=== PATIENT | female | born 1975 | race Caucasian/White ===

== ENCOUNTER 2023-01-28 22:49 | Inpatient (IN) ==
[2023-01-28] MEDS ORDERED: SODIUM CHLORIDE 0.9% 1000ML 1,000 ML IV SCH (23:15)
[2023-01-29 00:58] LABS: Appearance Urine Clear (Clear); Bacteria Urine Automated Negative (Negative); Bilirubin Urine Negative (Negative); Blood Urine 2+ (Negative); Cast Urine Automated 0 /lpf (0-5); Color Urine Yellow; Glucose Urine UA Negative (Negative); Ketones Urine Negative (Negative); Leukocyte Esterase Urine Negative (Negative); Nitrite Urine Negative (Negative); Protein Urine Negative (Negative); Specific Gravity Urine 1.006 (1.000-1.030); Urobilinogen Urine Negative (Negative); pH Urine 6.5 (4.5-7.5)
[2023-01-29 00:59] LABS: Basophils # (auto) 0.08 K/uL (0-0.2); Basophils % (auto) 0.6 %; Eosinophils % (auto) 1.5 %; Immature Granulocytes # (auto) 0.04 K/uL (0.01-0.20); Immature Granulocytes % (auto) 0.3 %; Lymphocytes # (auto) 2.18 K/uL (1.2-3.4); Mean Corpuscular Hemoglobin 27.4 pg (25.0-34.0); Mean Corpuscular Hgb Conc 33.3 g/dL (32.0-36.0); Mean Corpuscular Volume 82.1 fL (80.0-100.0); Mean Platelet Volume 9.8 fL (9.4-12.4); Monocytes # (auto) 0.53 K/uL (0.11-0.59); Monocytes % (auto) 3.9 %; Neutrophils # (auto) 10.56 K/uL (1.40-6.50); Neutrophils % (auto) 77.7 %; Platelet Count 431 K/uL (130-400); RDW Coefficient of Variation 13.8 % (11.5-14.5); RDW Standard Deviation 40.8 fL (36.4-46.3); Red Blood Count 4.75 M/uL (4.20-5.40); White Blood Count 13.59 K/ul (4.8-10.8)
[2023-01-29 01:11] LABS: Albumin Globulin Ratio 1.4 (0.9-2); Albumin Level 4.3 gm/dl (3.4-5.0); BUN Creatinine Ratio 22.9 (10-20); Bilirubin,Total 0.4 mg/dl (0.2-1.0); Calcium 9.4 mg/dl (8.5-10.1); Creatinine Clr Calc Pharmacy 105.3 ml/min; Est GFR (African American) 119.6 ml/min; Est GFR (Non-African American) 103.2 ml/min; Globulin 3.1 gm/dl (2.5-4.0); Potassium 3.8 mmol/L (3.5-5.1); Total Protein 7.4 gm/dl (6.0-8.3)
[2023-01-29 01:13] LABS: Pregnancy Test, Serum Negative (Negative)
[2023-01-29 01:22] LABS: Partial Thromboplastin Ratio 0.9; Partial Thromboplastin Time 25.1 Seconds (21.0-31.0); Prothrombin Time 10.3 Seconds (9.0-12.0)
[2023-01-29] MEDS ORDERED: OPTIRAY 320 500ml IV ONE (01:56)
[2023-01-29] MEDS ORDERED: ONDANSETRON INJ 2 MG/ML 2 ML VIAL IV STA (02:04)
[2023-01-29] MEDS ORDERED: MECLIZINE HCL 25 MG TAB PO STA (02:04)
[2023-01-29] MEDS ORDERED: SODIUM CHLORIDE 0.9% 1000ML 2,000 ML IV ONE (02:04)
--- NOTE | 2023-01-29 02:04 | CT Scan Report ---
Exam(s): CT HEAD Without Contrast EXAM: CT Head Without Intravenous Contrast CLINICAL HISTORY: Reason for exam: dizziness. TECHNIQUE: Axial computed tomography images of the head/brain without intravenous contrast. Automated exposure control was utilized for the study. A dose lowering technique was utilized adhering to the principles of ALARA. COMPARISON: Head CT 09/10/06. FINDINGS: Brain: Moderate left temporal lobe vasogenic edema. MRI brain with and without contrast is recommended for further evaluation of underlying lesion. No acute infarct. No acute hemorrhage. No abnormal density in the posterior fossa. No herniation. Ventricles: No hydrocephalus or midline shift. Bones/joints: No skull fracture. Soft tissues: No scalp hematoma. Sinuses: Clear. Mastoid air cells: No mastoid effusion. IMPRESSION: 1. Moderate left temporal lobe vasogenic edema. 2. No hemorrhage, hydrocephalus or herniation. 3. MRI brain with and without contrast is recommended for further evaluation. Electronically signed by: Ghazala Serrano M.D. 01/29/23 02:04 AM
--- NOTE | 2023-01-29 02:09 | Emergency Department Note ---
History of Present Illness General Chief complaint: Vertigo Stated complaint: VERTIGO,DIZZINESS, Time Seen by Provider: 01/29/23 01:57 History of Present Illness 47-year-old female presents emergency department with an onset of vertigo that started this morning when she woke up. Patient states when she lays flat she has sudden onset of room spinning. Patient has a history of reportedly congenital nystagmus at which is do not cause vertigo. Patient states that the lights look like ornaments that started around 5 this evening. Patient denies any hearing loss or tinnitus. Patient denies blurred vision slurred speech she does state some nausea. Patient denies any recent infections she states that she has chronic diarrhea. There are no other complaints. Patient states the symptoms are worsening when she lays flat. There are no other mitigating or alleviating factors Home Medications Medication Instructions Recorded Confirmed Type levothyroxine 137 mcg tablet 137 mcg PO 4XWK 09/28/20 01/29/23 History (Levo-T) levothyroxine 150 mcg tablet 150 mcg PO 3XWK 09/28/20 01/29/23 History (Levo-T) naratriptan 2.5 mg tablet 2.5 mg PO DIRECTED PRN Migraine 01/29/23 01/29/23 History Headache norgestrel 0.3 mg-ethinyl 1 tab PO DAILY 01/29/23 01/29/23 History estradiol 30 mcg tablet (Low-Ogestrel (28)) Allergies Allergy/AdvReac Type Severity Reaction Status Date / Time sumatriptan [From Imitrex] AdvReac Severe BECAME Verified 01/29/23 01:01 HOMICIDAL Past Med/Surg History Surgical History H/O thyroidectomy Family History Other No significant family history Social History Smoking Status: Never smoker Feels Safe at Home: Yes Immunizations: Past medical history includes migraines, 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; Review of Systems A total of 10 systems reviewed and were otherwise negative Neurologic: no paralysis, no tingling, no syncope and no headache(s) Physical Exam Vital Signs Vital Signs - 24 hr 01/28/23 22:50 01/29/23 00:34 01/29/23 00:30 Temperature 36.4 C L Temperature Source Temporal Artery Scan Pulse Rate 112 H 108 H Pulse Rate [Apical] 107 H Pulse Rate from SpO2 Sensor Pulse Rhythm [Apical] Regular Pulse Strength [Apical] Normal Respiratory Rate 20 22 Respiratory Effort / Characteristics Non-Labored Spontaneous Non-Labored Respiratory Depth Normal Normal Respiratory Pattern Regular Blood Pressure 168/117 H Blood Pressure [Right Arm] 156/109 H Blood Pressure Mean 134 Blood Pressure Mean [Right Arm] 124 Pulse Oximetry 97 96 Oxygen Delivery Method Room Air Room Air Sepsis Recent Fever Within 48 Hours No Sepsis New/Unexplained Change in Mental Status No Sepsis Action Taken by Nursing No Action Required 01/29/23 01:30 01/29/23 02:00 01/29/23 02:30 Temperature Temperature Source Pulse Rate 112 H 116 H 158 H Pulse Rate [Apical] Pulse Rate from SpO2 Sensor 113 H 117 H 154 H Pulse Rhythm [Apical] Pulse Strength [Apical] Respiratory Rate 20 22 23 Respiratory Effort / Characteristics Respiratory Depth Respiratory Pattern Blood Pressure 152/97 H 174/105 H 204/146 H Blood Pressure [Right Arm] Blood Pressure Mean 115 128 165 Blood Pressure Mean [Right Arm] Pulse Oximetry 95 95 98 Oxygen Delivery Method Room Air Room Air Room Air Sepsis Recent Fever Within 48 Hours Sepsis New/Unexplained Change in Mental Status Sepsis Action Taken by Nursing 01/29/23 02:45 01/29/23 03:00 01/29/23 03:05 Temperature Temperature Source Pulse Rate 121 H 127 H 126 H Pulse Rate [Apical] Pulse Rate from SpO2 Sensor 128 H 129 H 127 H Pulse Rhythm [Apical] Pulse Strength [Apical] Respiratory Rate 18 23 24 Respiratory Effort / Characteristics Respiratory Depth Respiratory Pattern Blood Pressure 172/112 H 174/106 H 163/109 H Blood Pressure [Right Arm] Blood Pressure Mean 132 128 127 Blood Pressure Mean [Right Arm] Pulse Oximetry 97 98 97 Oxygen Delivery Method Room Air Room Air Room Air Sepsis Recent Fever Within 48 Hours Sepsis New/Unexplained Change in Mental Status Sepsis Action Taken by Nursing GENERAL: Patient is awake alert in no acute distress patient is resting comfortably and showing no signs of anxiety EYES: The conjunctivae are clear. The pupils are round and reactive. EARS, NOSE, MOUTH AND THROAT: The nose is without any evidence of any deformity. Mucous membranes are moist. Tongue is midline. TMs are clear bilaterally NECK: The neck is nontender and supple. RESPIRATORY: Normal respiratory effort is noted there is no evidence of wheezing rhonchi or rales CARDIOVASCULAR: Tachycardic rate and rhythm noted there no murmurs rubs or gallops normal S1 normal S2. GASTROINTESTINAL: The abdomen is soft. Abdomen is nontender. PELVIS: The Pelvis is stable. No tenderness to palpation is noted. BACK: No midline tenderness or or step-off noted range of motion in flexion extension as well as rotation no signs of muscle spasm noted MUSCULOSKELETAL/EXTREMITIES: There is no evidence of gross deformity full range of motion is noted in the hips and shoulders. SKIN: There is no obvious evidence of any rash. There are no petechiae, pallor or cyanosis noted. NEUROLOGIC: Patient is awake alert and oriented x3 strength is symmetric; patient has horizontal nystagmus; NIH is 0 Course Reevaluation(s) Reevaluation #1: Patient was started on IV fluids, Zofran, meclizine. 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 I have discussed the CT results with the patient and family at bedside regarding the need due to this intracranial mass Time: 02:28 Consultations Consultation #1: Spoke with the radiologist regarding the patient's CAT scan reads Time: :28 Consultation #2: Spoke with Dr. Olivier at [facility], currently there are no beds available for this patient, he does recommend MRI of the brain with and without IV contrast, hold on Keppra and hold on Decadron Time: 02:44 Consultation #3: Case was discussed with the [facility] hospitalist for admission due to lack of beds at [facility] for transfer Time: 03:00 Administered Medications Sodium Chloride (Nss 1000ml) 2,000 mls @ 60 mls/hr IV .Q24H ONE Stop: 01/30/23 02:03 Last Admin: 01/29/23 02:10 Dose: 100 mls/hr Documented By: ROCAEL Discontinued Medications Sodium Chloride (Nss 1000ml) 1,000 mls @ 999 mls/hr IV .Q1H1M KIARRA Stop: 01/29/23 00:15 Last Infusion: 01/29/23 01:36 Dose: 0 mls/hr Documented By: Admin: 01/29/23 00:30 Dose: 999 mls/hr Documented By: PETRA Ioversol (Optiray 320 500ml) 125 ml IV ONCE ONE Stop: 01/29/23 01:57 Last Admin: 01/29/23 01:57 Dose: 106 ml Documented By: LEX Labetalol HCl (Labetalol Hcl Iv 5 Mg/Ml 20ml) 10 mg IV NOW STA Stop: 01/29/23 02:49 Last Admin: 01/29/23 03:00 Dose: 10 mg Documented By: ROCAEL Co-signed By: PETRA Meclizine HCl (Meclizine Hcl 25 Mg Tab) 25 mg PO NOW STA Stop: 01/29/23 02:05 Last Admin: 01/29/23 02:13 Dose: 25 mg Documented By: ROCAEL Ondansetron HCl (Ondansetron Inj 2 Mg/Ml 2 Ml Vial) 4 mg IV NOW STA Stop: 01/29/23 02:05 Last Admin: 01/29/23 02:13 Dose: 4 mg Documented By: ROCAEL Critical Care Time Critical Care Time: Yes Total Critical Care Time: 45 I have personally spent greater than 45 minutes of critical care time in the direct management of this patient. This includes bedside care, interpretation of diagnostic studies, and testing, discussion with consultants, patient, and family members, and other required patient management activities. These minutes are in excess of all separately billable procedures. Medical Decision Making Medical Records Attestation: I reviewed the patient's medical records. Home Medications Current Medication List: was personally reviewed by Laboratory Data Attestation: I reviewed the patient's lab results. Labs reviewed by me show a leukocytosis 01/29/23 00:15 01/29/23 00:15 Lab Results 01/29/23 01/29/23 01/29/23 Range/Units 00:15 00:15 00:15 WBC 13.59 H (4.8-10.8) K/ul RBC 4.75 (4.20-5.40) M/uL Hgb 13.0 (12.0-16.0) g/dl Hct 39.0 (37.0-47.0) % MCV 82.1 (80.0-100.0) fL MCH 27.4 (25.0-34.0) pg MCHC 33.3 (32.0-36.0) g/dL RDW Std Deviation 40.8 (36.4-46.3) fL RDW Coeff of Rei 13.8 (11.5-14.5) % Plt Count 431 H (130-400) K/uL MPV 9.8 (9.4-12.4) fL Immature Gran % (Auto) 0.3 % Neut % (Auto) 77.7 % Lymph % (Auto) 16.0 % Whiteside % (Auto) 3.9 % Eos % (Auto) 1.5 % Baso % (Auto) 0.6 % Neut # (Auto) 10.56 H (1.40-6.50) K/uL Lymph # (Auto) 2.18 (1.2-3.4) K/uL Whiteside # (Auto) 0.53 (0.11-0.59) K/uL Eos # (Auto) 0.20 (0-0.50) K/uL Baso # (Auto) 0.08 (0-0.2) K/uL Immature Gran # (Auto) 0.04 (0.01-0.20) K/uL PT 10.3 (9.0-12.0) Seconds INR 1.0 (0.9-1.1) APTT 25.1 (21.0-31.0) Seconds PTT Ratio 0.9 Sodium 140 (136-145) mmol/L Potassium 3.8 (3.5-5.1) mmol/L Chloride 106 (98-107) mmol/L Carbon Dioxide 24 (21-32) mmol/L Anion Gap 10 (3-11) BUN 16 (6-23) mg/dl Creatinine 0.70 (0.6-1.2) mg/dl Est Cr Clr Drug Dosing 105.3 ml/min Est GFR ( Amer) 119.6 ml/min Est GFR (Non-Af Amer) 103.2 ml/min BUN/Creatinine Ratio 22.9 H (10-20) Glucose 130 H (70-99(Fasting)) mg/dl Calcium 9.4 (8.5-10.1) mg/dl Magnesium 2.0 (1.7-2.4) mg/dl Total Bilirubin 0.4 (0.2-1.0) mg/dl AST 17 (13-39) U/L ALT 26 (7-52) U/L Alkaline Phosphatase 69 (34-104) U/L Troponin I High Sens 6.0 (0-14) pg/ml Total Protein 7.4 (6.0-8.3) gm/dl Albumin 4.3 (3.4-5.0) gm/dl Globulin 3.1 (2.5-4.0) gm/dl Albumin/Globulin Ratio 1.4 (0.9-2) Procalcitonin (0-0.5) ng/ml TSH (0.300-4.500) uIu/ml HCG, Qual (Negative) Urine Color Urine Appearance (Clear) Urine pH (4.5-7.5) Ur Specific [place] (1.000-1.030) Urine Protein (Negative) Urine Glucose (UA) (Negative) Urine Ketones (Negative) Urine Blood (Negative) Urine Nitrite (Negative) Urine Bilirubin (Negative) Urine Urobilinogen (Negative) Ur Leukocyte Esterase (Negative) Urine WBC (Auto) (0-5) /hpf Urine RBC (Auto) (0-4) /hpf U Hyaline Cast (Auto) (0-5) /lpf U Epithel Cells (Auto) (0-5) /lpf Urine Bacteria (Auto) (Negative) SARS-CoV-2, RNA, NAAT (NEGATIVE) 01/29/23 01/29/23 01/29/23 Range/Units 00:15 00:15 00:15 WBC (4.8-10.8) K/ul RBC (4.20-5.40) M/uL Hgb (12.0-16.0) g/dl Hct (37.0-47.0) % MCV (80.0-100.0) fL MCH (25.0-34.0) pg MCHC (32.0-36.0) g/dL RDW Std Deviation (36.4-46.3) fL RDW Coeff of Rei (11.5-14.5) % Plt Count (130-400) K/uL MPV (9.4-12.4) fL Immature Gran % (Auto) % Neut % (Auto) % Lymph % (Auto) % Whiteside % (Auto) % Eos % (Auto) % Baso % (Auto) % Neut # (Auto) (1.40-6.50) K/uL Lymph # (Auto) (1.2-3.4) K/uL [place]ites[place] # (Auto) (0.11-0.59) K/uL Eos # (Auto) (0-0.50) K/uL Baso # (Auto) (0-0.2) K/uL Immature Gran # (Auto) (0.01-0.20) K/uL PT (9.0-12.0) Seconds INR (0.9-1.1) APTT (21.0-31.0) Seconds PTT Ratio Sodium (136-145) mmol/L Potassium (3.5-5.1) mmol/L Chloride (98-107) mmol/L Carbon Dioxide (21-32) mmol/L Anion Gap (3-11) BUN (6-23) mg/dl Creatinine (0.6-1.2) mg/dl Est Cr Clr Drug Dosing ml/min Est GFR ( Amer) ml/min Est GFR (Non-Af Amer) ml/min BUN/Creatinine Ratio (10-20) Glucose (70-99(Fasting)) mg/dl Calcium (8.5-10.1) mg/dl Magnesium (1.7-2.4) mg/dl Total Bilirubin (0.2-1.0) mg/dl AST (13-39) U/L ALT (7-52) U/L Alkaline Phosphatase (34-104) U/L Troponin I High Sens (0-14) pg/ml Total Protein (6.0-8.3) gm/dl Albumin (3.4-5.0) gm/dl Globulin (2.5-4.0) gm/dl Albumin/Globulin Ratio (0.9-2) Procalcitonin (0-0.5) ng/ml TSH 3.466 (0.300-4.500) uIu/ml HCG, Qual Negative (Negative) Urine Color Yellow Urine Appearance Clear (Clear) Urine pH 6.5 (4.5-7.5) Ur Specific [place] 1.006 (1.000-1.030) Urine Protein Negative (Negative) Urine Glucose (UA) Negative (Negative) Urine Ketones Negative (Negative) Urine Blood 2+ H (Negative) Urine Nitrite Negative (Negative) Urine Bilirubin Negative (Negative) Urine Urobilinogen Negative (Negative) Ur Leukocyte Esterase Negative (Negative) Urine WBC (Auto) 1-5 (0-5) /hpf Urine RBC (Auto) 5-10 H (0-4) /hpf U Hyaline Cast (Auto) 0 (0-5) /lpf U Epithel Cells (Auto) 10-20 H (0-5) /lpf Urine Bacteria (Auto) Negative (Negative) SARS-CoV-2, RNA, NAAT (NEGATIVE) 01/29/23 01/29/23 Range/Units 00:15 02:27 WBC (4.8-10.8) K/ul RBC (4.20-5.40) M/uL Hgb (12.0-16.0) g/dl Hct (37.0-47.0) % MCV (80.0-100.0) fL MCH (25.0-34.0) pg MCHC (32.0-36.0) g/dL RDW Std Deviation (36.4-46.3) fL RDW Coeff of Rei (11.5-14.5) % Plt Count (130-400) K/uL MPV (9.4-12.4) fL Immature Gran % (Auto) % Neut % (Auto) % Lymph % (Auto) % [place]ites[place] % (Auto) % Eos % (Auto) % Baso % (Auto) % Neut # (Auto) (1.40-6.50) K/uL Lymph # (Auto) (1.2-3.4) K/uL [place] # (Auto) (0.11-0.59) K/uL Eos # (Auto) (0-0.50) K/uL Baso # (Auto) (0-0.2) K/uL Immature Gran # (Auto) (0.01-0.20) K/uL PT (9.0-12.0) Seconds INR (0.9-1.1) APTT (21.0-31.0) Seconds PTT Ratio Sodium (136-145) mmol/L Potassium (3.5-5.1) mmol/L Chloride (98-107) mmol/L Carbon Dioxide (21-32) mmol/L Anion Gap (3-11) BUN (6-23) mg/dl Creatinine (0.6-1.2) mg/dl Est Cr Clr Drug Dosing ml/min Est GFR ( Amer) ml/min Est GFR (Non-Af Amer) ml/min BUN/Creatinine Ratio (10-20) Glucose (70-99(Fasting)) mg/dl Calcium (8.5-10.1) mg/dl Magnesium (1.7-2.4) mg/dl Total Bilirubin (0.2-1.0) mg/dl AST (13-39) U/L ALT (7-52) U/L Alkaline Phosphatase (34-104) U/L Troponin I High Sens (0-14) pg/ml Total Protein (6.0-8.3) gm/dl Albumin (3.4-5.0) gm/dl Globulin (2.5-4.0) gm/dl Albumin/Globulin Ratio (0.9-2) Procalcitonin < 0.05 (0-0.5) ng/ml TSH (0.300-4.500) uIu/ml HCG, Qual (Negative) Urine Color Urine Appearance (Clear) Urine pH (4.5-7.5) Ur Specific [place] (1.000-1.030) Urine Protein (Negative) Urine Glucose (UA) (Negative) Urine Ketones (Negative) Urine Blood (Negative) Urine Nitrite (Negative) Urine Bilirubin (Negative) Urine Urobilinogen (Negative) Ur Leukocyte Esterase (Negative) Urine WBC (Auto) (0-5) /hpf Urine RBC (Auto) (0-4) /hpf U Hyaline Cast (Auto) (0-5) /lpf U Epithel Cells (Auto) (0-5) /lpf Urine Bacteria (Auto) (Negative) SARS-CoV-2, RNA, NAAT NEGATIVE (NEGATIVE) Imaging Data Attestation: I personally reviewed and interpreted this imaging study as follows: My Impression: CT of the brain per my interpretation is negative for intracranial bleed Radiologist's Impression: Head CT 01/28/23 23:10 Exam(s): CT HEAD Without Contrast EXAM: CT Head Without Intravenous Contrast CLINICAL HISTORY: Reason for exam: dizziness. TECHNIQUE: Axial computed tomography images of the head/brain without intravenous contrast. Automated exposure control was utilized for the study. A dose lowering technique was utilized adhering to the principles of ALARA. COMPARISON: Head CT 09/10/06. FINDINGS: Brain: Moderate left temporal lobe vasogenic edema. MRI brain with and without contrast is recommended for further evaluation of underlying lesion. No acute infarct. No acute hemorrhage. No abnormal density in the posterior fossa. No herniation. Ventricles: No hydrocephalus or midline shift. Bones/joints: No skull fracture. Soft tissues: No scalp hematoma. Sinuses: Clear. Mastoid air cells: No mastoid effusion. IMPRESSION: 1. Moderate left temporal lobe vasogenic edema. 2. No hemorrhage, hydrocephalus or herniation. 3. MRI brain with and without contrast is recommended for further evaluation. Electronically signed by: Ghazala Serrano M.D. 01/29/23 02:04 AM Head CTA 01/28/23 23:12 Exam(s): CTA HEAD With Contrast IV Amt: 106 ML OPTIRAY 320 EXAM: CT Angiography Head With Intravenous Contrast CLINICAL HISTORY: Reason for exam: neuro deficit, acute stroke suspected. TECHNIQUE: Axial computed tomographic angiography images of the head with intravenous contrast. Automated exposure control was utilized for the study. A dose lowering technique was utilized adhering to the principles of ALARA. MIP reconstructed images were created and reviewed. CONTRAST: Patient received 106 ML OPTIRAY 320 of IV contrast COMPARISON: None. FINDINGS: Right internal carotid artery: Patent. Right anterior cerebral artery: Patent. Right middle cerebral artery: Patent. Right posterior cerebral artery: Patent. Right vertebral artery: Patent. Left internal carotid artery: Patent. Left anterior cerebral artery: Patent. Left middle cerebral artery: Patent. Left posterior cerebral artery: Patent. Left vertebral artery: Patent. Basilar artery: Patent. Other: 2 cm enhancing mass left anterior inferior temporal lobe with vasogenic edema, nonspecific, concerning for neoplasm. IMPRESSION: 1. 2 cm left temporal lobe enhancing mass, concerning for neoplasm. 2. No aneurysm or large vessel occlusion. Electronically signed by: Ghazala Serrano M.D. 01/29/23 02:06 AM Neck CTA 01/28/23 23:12 Exam(s): CTA NECK With Contrast IV Amt: 106 ML OPTIRAY 320 EXAM: CT Angiography Neck With Intravenous Contrast CLINICAL HISTORY: Reason for exam: neuro deficit, acute stroke suspected. TECHNIQUE: Routine carotid CT angiography protocol was performed with intravenous contrast. NASCET criteria using the distal ICAs for comparison were used for evaluation of stenoses. Automated exposure control was utilized for the study. A dose lowering technique was utilized adhering to the principles of ALARA. MIP reconstructed images were created and reviewed. CONTRAST: Patient received 106 ML OPTIRAY 320 of IV contrast COMPARISON: None. FINDINGS: VASCULATURE: Right common carotid artery: Patent. Right internal carotid artery: Mild irregularity and ectasia of the right distal cervical ICA, nonspecific, possible small pseudoaneurysm. Right vertebral artery: Patent. Slight right dominant system. Left common carotid artery: Patent. Left internal carotid artery: Distal cervical ICA outpouching, concerning for a 4 x 6 mm pseudoaneurysm axial series 6 image 290. Age indeterminate. No intimal flap. Left vertebral artery: Patent. Other: Bilateral distal cervical ICA vessel irregularity raises the possibility of trauma/dissection and/or fibromuscular dysplasia. No carotid or aortic atherosclerosis. IMPRESSION: 1. 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 2. Mild ectasia and irregularity RIGHT distal cervical ICA, could also reflect small pseudoaneurysm. 3. Findings are age indeterminate. 4. Correlate clinically if there is been trauma, FMD could also have this appearance. CAROTID STENOSIS REFERENCE USING NASCET CRITERIA: % ICA stenosis = (1 - narrowest ICA diameter/diameter of distal cervical ICA) x 100. Mild - <50% stenosis. Moderate - 50-69% stenosis. Severe - 70-94% stenosis. Near occlusion - 95-99% stenosis. Occluded - 100% stenosis. Electronically signed by: Ghazala Serrano M.D. 01/29/23 02:12 AM [facility] Narrative Medical decision making differential diagnosis includes benign positional vertigo, dehydration, labyrinthitis, CVA, TIA, intracranial mass Plan is to check labs, EKG, CT brain, give IV fluid, meclizine, Zofran Patient was found to have a left temporal lobe mass, plan is to transfer the patient to tertiary care. I did speak with the neurosurgeon at [facility] Patient will be admitted to our facility due to no bed availability at [facility] Impression & Plan Mass of temporoparietal region of brain, Vertigo Discharge Plan Visit Data Chief Complaint: Vertigo Stated Complaint: VERTIGO,DIZZINESS, ED Provider: Devang Landa Discharge Problem: Mass of temporoparietal region of brain, Vertigo Patient Disposition: Admitted As Inpatient Forms Stand Alone Forms: My [facility] Prescriptions Prescriptions: No Action levothyroxine [Levo-T] 137 mcg tablet 137 mcg PO 4XWK Rx Instructions: TAKES SUN, TUES, THURS & SAT. levothyroxine [Levo-T] 150 mcg tablet 150 mcg PO 3XWK Rx Instructions: TAKES MON, WED, & FRI. Low-Ogestrel (28) 0.3-30 mg-mcg tablet 1 tab PO DAILY naratriptan 2.5 mg tablet 2.5 mg PO DIRECTED PRN (Reason: Migraine Headache) Referrals Referrals: Ab Olivier MD [Physician] -
--- NOTE | 2023-01-29 02:12 | CT Scan Report ---
Exam(s): CTA NECK With Contrast IV Amt: 106 ML OPTIRAY 320 EXAM: CT Angiography Neck With Intravenous Contrast CLINICAL HISTORY: Reason for exam: neuro deficit, acute stroke suspected. TECHNIQUE: Routine carotid CT angiography protocol was performed with intravenous contrast. NASCET criteria using the distal ICAs for comparison were used for evaluation of stenoses. Automated exposure control was utilized for the study. A dose lowering technique was utilized adhering to the principles of ALARA. MIP reconstructed images were created and reviewed. CONTRAST: Patient received 106 ML OPTIRAY 320 of IV contrast COMPARISON: None. FINDINGS: VASCULATURE: Right common carotid artery: Patent. Right internal carotid artery: Mild irregularity and ectasia of the right distal cervical ICA, nonspecific, possible small pseudoaneurysm. Right vertebral artery: Patent. Slight right dominant system. Left common carotid artery: Patent. Left internal carotid artery: Distal cervical ICA outpouching, concerning for a 4 x 6 mm pseudoaneurysm axial series 6 image 290. Age indeterminate. No intimal flap. Left vertebral artery: Patent. Other: Bilateral distal cervical ICA vessel irregularity raises the possibility of trauma/dissection and/or fibromuscular dysplasia. No carotid or aortic atherosclerosis. IMPRESSION: 1. 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 2. Mild ectasia and irregularity RIGHT distal cervical ICA, could also reflect small pseudoaneurysm. 3. Findings are age indeterminate. 4. Correlate clinically if there is been trauma, FMD could also have this appearance. CAROTID STENOSIS REFERENCE USING NASCET CRITERIA: % ICA stenosis = (1 - narrowest ICA diameter/diameter of distal cervical ICA) x 100. Mild - <50% stenosis. Moderate - 50-69% stenosis. Severe - 70-94% stenosis. Near occlusion - 95-99% stenosis. Occluded - 100% stenosis. Electronically signed by: Ghazala Serrano M.D. 01/29/23 02:12 AM
[2023-01-29] MEDS ORDERED: LABETALOL HCL IV 5 MG/ML 20ML IV STA (02:48)
[2023-01-29] MEDS ORDERED: LORazepam 2 MG/1 ML VIAL IV PRN (03:24)
--- NOTE | 2023-01-29 03:24 | History & Physical Report ---
Date of Service January 29, 2023 Assessment & Plan (1) Increased intracranial pressure: Plan: Secondary to possible brain tumor given left temporal lobe vasogenic edema on initial CT read Hypertensive crisis secondary to above, anxiety contributory, possible chronic BP elevation given LVH on EKG hx migraine thyroid cancer status post surgery postsurgical hypothyroidism, euthyroid as of today's TSH hx cervical high-grade squamous intraepithelial cervical lesion (2021), repeat Pap smear contemplated this year as per outpatient gynecology note Hyperglycemia rule out DM PCU Neurochecks Transfer to [facility] once bed available. (Patient accepted for transfer by Dr. Maurice Olivier of Neurology following conversation with ER provider. MRI brain with and without contrast recommended interim. [facility] neurologist recommended holding off on steroids/AED therapy for now as per ED provider. CT chest/abdomen/pelvis recommended if malignancy suspected on MRI brain as per [facility] neurology note. Transfer paperwork already completed at the ED by provider.) IV labetalol 1 dose now given elevated BP and tachycardia Initiate lisinopril as maintenance medication if BP continues to be elevated. Anxiolytic as needed Check hemoglobin A1c DVT prophylaxis. SCDs Re: Possible brain tumor Full code Patient partner requesting updates from providers. Mr. Reynolds Newton, Sr., contact #[phone]. Text document was generated using [employer] voice recognition software. It may contain grammatical or spelling errors. Kindly contact undersigned for clarification of any documentation item in question. History of Present Illness Chief Complaint: Vertigo Primary Care Provider: Marco A Aguilera MD History obtained from patient, family, and records. Medical history significant for migraine, thyroid cancer status post surgery, postsurgical hypothyroidism, hx cervical high-grade squamous intraepithelial cervical lesion (2021), congenital nystagmus as per records. Patient woke up yesterday morning vertigo symptoms, spinning sensation. Mild headache symptoms. Symptoms worse on the supine position. Symptoms somewhat different from migraine or sinus congestion attack. No response to home migraine medications or decongestants. No chest pain, no SOB. Patient brought to the ER for evaluation. Transient chest tightness, palpitations while undergoing CAT scan secondary to claustrophobia. CT head showed left temporal lobe edema vasogenic edema. Patient accepted for transfer at [facility] by neurohospitalist service pending bed availability. Medical History as above 2021 Cologuard was negative 2021 mammogram was negative Surgical History : Breast biopsy, cervical colposcopy, thyroidectomy Family History : Stroke, DM, heart disease, dementia Personal/Social history : Non-smoker, occasional EtOH intake, human resources departmental secretary for [employer] Allergies Allergy/AdvReac Type Severity Reaction Status Date / Time sumatriptan [From Imitrex] AdvReac Severe BECAME Verified 01/29/23 01:01 HOMICIDAL Home Medications Medication Instructions Recorded Confirmed Type levothyroxine 137 mcg tablet 137 mcg PO 4XWK 09/28/20 01/29/23 History (Levo-T) levothyroxine 150 mcg tablet 150 mcg PO 3XWK 09/28/20 01/29/23 History (Levo-T) naratriptan 2.5 mg tablet 2.5 mg PO DIRECTED PRN Migraine 01/29/23 01/29/23 History Headache norgestrel 0.3 mg-ethinyl 1 tab PO DAILY 01/29/23 01/29/23 History estradiol 30 mcg tablet (Low-Ogestrel (28)) Past Med/Surg History Surgical History H/O thyroidectomy Family History Other No significant family history Social History Smoking Status: Never smoker Second Hand Exposure: No; Do You Dip or Chew Tobacco: No; Tobacco Cessation Education Requested by Patient: No Hx Alcohol Use: No Hx Substance Use: No Preferred Language: Nepali Communication Ability: Effective Cloth Drier Required: No Beliefs That Will Affect Care: None Current Living Situation: Significant Other Other Information That Helps Us Care for You: No Feels Safe at Home: Yes Safety Concerns: Feels Safe At This Time Assistive Devices: None Review of Systems Review of Systems: As per HPI, all other systems reviewed and negative Physical Exam Physical Exam: GENERAL: Comfortable, obese, slightly anxious, no respiratory distress SKIN: Normal color, warm HEENT: [place] palpebral conjunctivae, no ptosis, moist buccal mucosa NECK : Supple, short neck, no tenderness CHEST : CTA, no tenderness HEART : Tachycardic, no obvious murmurs ABDOMEN: Some distention, nontender EXTREMITIES : No LE swelling/tenderness, no other conspicuous deformities noted NEUROLOGIC : Coherent, no facial asymmetry, no other gross focality Results & Data Results & Data ([facility]) Vital Signs (Past 12 Hours) Vital Signs Temp Pulse Pulse Resp BP BP Pulse Ox 01/29/23 03:05 126 H 24 163/109 H 97 01/29/23 03:00 127 H 23 174/106 H 98 01/29/23 02:45 121 H 18 172/112 H 97 01/29/23 02:30 158 H 23 204/146 H 98 01/29/23 02:00 116 H 22 174/105 H 95 01/29/23 01:30 112 H 20 152/97 H 95 01/29/23 00:30 108 H 01/29/23 00:34 107 H 22 156/109 H 96 01/28/23 22:50 36.4 C L 112 H 20 168/117 H 97 O2 Del Method 01/29/23 03:05 Room Air 01/29/23 03:00 Room Air 01/29/23 02:45 Room Air 01/29/23 02:30 Room Air 01/29/23 02:00 Room Air 01/29/23 01:30 Room Air 01/29/23 00:30 01/29/23 00:34 Room Air 01/28/23 22:50 Room Air Laboratory Results Laboratory Results WBC 13.59 K/ul (4.8-10.8) H 01/29/23 00:15 RBC 4.75 M/uL (4.20-5.40) 01/29/23 00:15 Hgb 13.0 g/dl (12.0-16.0) 01/29/23 00:15 Hct 39.0 % (37.0-47.0) 01/29/23 00:15 MCV 82.1 fL (80.0-100.0) 01/29/23 00:15 MCH 27.4 pg (25.0-34.0) 01/29/23 00:15 MCHC 33.3 g/dL (32.0-36.0) 01/29/23 00:15 RDW Std Deviation 40.8 fL (36.4-46.3) 01/29/23 00:15 RDW Coeff of Rei 13.8 % (11.5-14.5) 01/29/23 00:15 Plt Count 431 K/uL (130-400) H 01/29/23 00:15 MPV 9.8 fL (9.4-12.4) 01/29/23 00:15 Immature Gran % (Auto) 0.3 % 01/29/23 00:15 Neut % (Auto) 77.7 % 01/29/23 00:15 Lymph % (Auto) 16.0 % 01/29/23 00:15 [place] % (Auto) 3.9 % 01/29/23 00:15 Eos % (Auto) 1.5 % 01/29/23 00:15 Baso % (Auto) 0.6 % 01/29/23 00:15 Neut # (Auto) 10.56 K/uL (1.40-6.50) H 01/29/23 00:15 Lymph # (Auto) 2.18 K/uL (1.2-3.4) 01/29/23 00:15 [place] # (Auto) 0.53 K/uL (0.11-0.59) 01/29/23 00:15 Eos # (Auto) 0.20 K/uL (0-0.50) 01/29/23 00:15 Baso # (Auto) 0.08 K/uL (0-0.2) 01/29/23 00:15 Immature Gran # (Auto) 0.04 K/uL (0.01-0.20) 01/29/23 00:15 PT 10.3 Seconds (9.0-12.0) 01/29/23 00:15 INR 1.0 (0.9-1.1) 01/29/23 00:15 APTT 25.1 Seconds (21.0-31.0) 01/29/23 00:15 PTT Ratio 0.9 01/29/23 00:15 Sodium 140 mmol/L (136-145) 01/29/23 00:15 Potassium 3.8 mmol/L (3.5-5.1) 01/29/23 00:15 Chloride 106 mmol/L (98-107) 01/29/23 00:15 Carbon Dioxide 24 mmol/L (21-32) 01/29/23 00:15 Anion Gap 10 (3-11) 01/29/23 00:15 BUN 16 mg/dl (6-23) 01/29/23 00:15 Creatinine 0.70 mg/dl (0.6-1.2) 01/29/23 00:15 Est Cr Clr Drug Dosing 105.3 ml/min 01/29/23 00:15 Est GFR ( Amer) 119.6 ml/min 01/29/23 00:15 Est GFR (Non-Af Amer) 103.2 ml/min 01/29/23 00:15 BUN/Creatinine Ratio 22.9 (10-20) H 01/29/23 00:15 Glucose 130 mg/dl (70-99(Fasting)) H 01/29/23 00:15 Calcium 9.4 mg/dl (8.5-10.1) 01/29/23 00:15 Total Bilirubin 0.4 mg/dl (0.2-1.0) 01/29/23 00:15 AST 17 U/L (13-39) 01/29/23 00:15 ALT 26 U/L (7-52) 01/29/23 00:15 Alkaline Phosphatase 69 U/L (34-104) 01/29/23 00:15 Troponin I High Sens 6.0 pg/ml (0-14) 01/29/23 00:15 Total Protein 7.4 gm/dl (6.0-8.3) 01/29/23 00:15 Albumin 4.3 gm/dl (3.4-5.0) 01/29/23 00:15 Globulin 3.1 gm/dl (2.5-4.0) 01/29/23 00:15 Albumin/Globulin Ratio 1.4 (0.9-2) 01/29/23 00:15 Procalcitonin < 0.05 ng/ml (0-0.5) 01/29/23 00:15 TSH 3.466 uIu/ml (0.300-4.500) 01/29/23 00:15 HCG, Qual Negative (Negative) 01/29/23 00:15 Urine Color Yellow 01/29/23 00:15 Urine Appearance Clear (Clear) 01/29/23 00:15 Urine pH 6.5 (4.5-7.5) 01/29/23 00:15 Ur Specific [place] 1.006 (1.000-1.030) 01/29/23 00:15 Urine Protein Negative (Negative) 01/29/23 00:15 Urine Glucose (UA) Negative (Negative) 01/29/23 00:15 Urine Ketones Negative (Negative) 01/29/23 00:15 Urine Blood 2+ (Negative) H 01/29/23 00:15 Urine Nitrite Negative (Negative) 01/29/23 00:15 Urine Bilirubin Negative (Negative) 01/29/23 00:15 Urine Urobilinogen Negative (Negative) 01/29/23 00:15 Ur Leukocyte Esterase Negative (Negative) 01/29/23 00:15 Urine WBC (Auto) 1-5 /hpf (0-5) 01/29/23 00:15 Urine RBC (Auto) 5-10 /hpf (0-4) H 01/29/23 00:15 U Hyaline Cast (Auto) 0 /lpf (0-5) 01/29/23 00:15 U Epithel Cells (Auto) 10-20 /lpf (0-5) H 01/29/23 00:15 Urine Bacteria (Auto) Negative (Negative) 01/29/23 00:15 SARS-CoV-2, RNA, NAAT NEGATIVE (NEGATIVE) 01/29/23 02:[address] 01/28/23 23:10 Exam(s): CT HEAD Without Contrast EXAM: CT Head Without Intravenous Contrast CLINICAL HISTORY: Reason for exam: dizziness. TECHNIQUE: Axial computed tomography images of the head/brain without intravenous contrast. Automated exposure control was utilized for the study. A dose lowering technique was utilized adhering to the principles of ALARA. COMPARISON: Head CT 09/10/06. FINDINGS: Brain: Moderate left temporal lobe vasogenic edema. MRI brain with and without contrast is recommended for further evaluation of underlying lesion. No acute infarct. No acute hemorrhage. No abnormal density in the posterior fossa. No herniation. Ventricles: No hydrocephalus or midline shift. Bones/joints: No skull fracture. Soft tissues: No scalp hematoma. Sinuses: Clear. Mastoid air cells: No mastoid effusion. IMPRESSION: 1. Moderate left temporal lobe vasogenic edema. 2. No hemorrhage, hydrocephalus or herniation. 3. MRI brain with and without contrast is recommended for further evaluation. Electronically signed by: Ghazala Serrano M.D. 01/29/23 02:04 AM Head CTA 01/28/23 23:12 Exam(s): CTA HEAD With Contrast IV Amt: 106 ML OPTIRAY 320 EXAM: CT Angiography Head With Intravenous Contrast CLINICAL HISTORY: Reason for exam: neuro deficit, acute stroke suspected. TECHNIQUE: Axial computed tomographic angiography images of the head with intravenous contrast. Automated exposure control was utilized for the study. A dose lowering technique was utilized adhering to the principles of ALARA. MIP reconstructed images were created and reviewed. CONTRAST: Patient received 106 ML OPTIRAY 320 of IV contrast COMPARISON: None. FINDINGS: Right internal carotid artery: Patent. Right anterior cerebral artery: Patent. Right middle cerebral artery: Patent. Right posterior cerebral artery: Patent. Right vertebral artery: Patent. Left internal carotid artery: Patent. Left anterior cerebral artery: Patent. Left middle cerebral artery: Patent. Left posterior cerebral artery: Patent. Left vertebral artery: Patent. Basilar artery: Patent. Other: 2 cm enhancing mass left anterior inferior temporal lobe with vasogenic edema, nonspecific, concerning for neoplasm. IMPRESSION: 1. 2 cm left temporal lobe enhancing mass, concerning for neoplasm. 2. No aneurysm or large vessel occlusion. Electronically signed by: Ghazala Serrano M.D. 01/29/23 02:06 AM Neck CTA 01/28/23 23:12 Exam(s): CTA NECK With Contrast IV Amt: 106 ML OPTIRAY 320 EXAM: CT Angiography Neck With Intravenous Contrast CLINICAL HISTORY: Reason for exam: neuro deficit, acute stroke suspected. TECHNIQUE: Routine carotid CT angiography protocol was performed with intravenous contrast. NASCET criteria using the distal ICAs for comparison were used for evaluation of stenoses. Automated exposure control was utilized for the study. A dose lowering technique was utilized adhering to the principles of ALARA. MIP reconstructed images were created and reviewed. CONTRAST: Patient received 106 ML OPTIRAY 320 of IV contrast COMPARISON: None. FINDINGS: VASCULATURE: Right common carotid artery: Patent. Right internal carotid artery: Mild irregularity and ectasia of the right distal cervical ICA, nonspecific, possible small pseudoaneurysm. Right vertebral artery: Patent. Slight right dominant system. Left common carotid artery: Patent. Left internal carotid artery: Distal cervical ICA outpouching, concerning for a 4 x 6 mm pseudoaneurysm axial series 6 image 290. Age indeterminate. No intimal flap. Left vertebral artery: Patent. Other: Bilateral distal cervical ICA vessel irregularity raises the possibility of trauma/dissection and/or fibromuscular dysplasia. No carotid or aortic atherosclerosis. IMPRESSION: 1. 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 2. Mild ectasia and irregularity RIGHT distal cervical ICA, could also reflect small pseudoaneurysm. 3. Findings are age indeterminate. 4. Correlate clinically if there is been trauma, FMD could also have this appearance. CAROTID STENOSIS REFERENCE USING NASCET CRITERIA: % ICA stenosis = (1 - narrowest ICA diameter/diameter of distal cervical ICA) x 100. Mild - <50% stenosis. Moderate - 50-69% stenosis. Severe - 70-94% stenosis. Near occlusion - 95-99% stenosis. Occluded - 100% stenosis. Electronically signed by: Ghazala Serrano M.D. 01/29/23 02:12 AM Diagnostic Findings EKG as per my interpretation : Rate 100, NSR, LAD, LAFB, LVH, incomplete RBBB, T wave abnormalities inferior and anterolateral leads
[2023-01-29] MEDS ORDERED: oxyCODONE HCL IR 5 MG TAB (IMMEDIATE RELEASE) PO PRN (03:34)
[2023-01-29] MEDS ORDERED: PROMETHAZINE HCL 12.5 MG in SODIUM CHLORIDE 0.9% 50 ML IV PRN (03:34)
[2023-01-29] MEDS ORDERED: ACETAMINOPHEN 325 MG TAB PO PRN (03:34)
[2023-01-29] MEDS ORDERED: MoRPHine SULFATE 2 MG/ML CARP IV PRN (03:34)
[2023-01-29] MEDS ORDERED: MECLIZINE 12.5 MG TAB PO PRN (03:34)
[2023-01-29] MEDS ORDERED: GADOBUTROL 65ML VIAL IV ONE (04:34)
[2023-01-29] MEDS ORDERED: METOPROLOL TARTRATE 1 MG/ML VIAL IV STA (05:03)
[2023-01-29] MEDS ORDERED: LEVOTHYROXINE SODIUM 137 MCG TABLET PO SCH (06:04)
--- NOTE | 2023-01-29 07:01 | Magnetic Resonance Report ---
Exam(s): MRI HEAD W/WO Contrast IV Amt: 8.5cc gadavist EXAM: MR Head Without and With Intravenous Contrast CLINICAL HISTORY: Reason for exam: brain mass. TECHNIQUE: Magnetic resonance images of the head/brain without and with intravenous contrast in multiple planes. CONTRAST: Patient received 8.5cc gadavist of IV contrast COMPARISON: Comparison made to prior noncontrast head CT from the same day.. FINDINGS: Brain: There is a brightly enhancing extra-axial dural based soft tissue mass in the left middle cranial fossa with dural tail, measuring 25.5 x 24.5 x 22 mm with moderate adjacent vasogenic edema. The flow voids at the base of the brain are intact. No hemorrhage. No acute infarct. Ventricles: Unremarkable. No ventriculomegaly. Bones/joints: Unremarkable. Sinuses: Unremarkable as visualized. No acute sinusitis. Mastoid air cells: Unremarkable as visualized. No mastoid effusion. Orbits: Unremarkable as visualized. IMPRESSION: There is a extra-axial dural-based brightly enhancing soft tissue mass in the left middle cranial fossa measuring 25.5 x 24.5 x 22 mm with moderate surrounding vasogenic edema, which most likely represents a meningioma. Electronically signed by: Yessi Costa MD 01/29/23 07:00 AM
--- NOTE | 2023-01-29 07:51 | XRay Report ---
XR chest 1V portable CLINICAL HISTORY: dizziness TECHNIQUE: Single frontal radiograph of the chest was obtained. Comparison: None available at the time of this dictation. FINDINGS: No lines and tubes are seen. Calcified aortic knob is seen. The lungs are clear. No evidence of pleur al effusion or pneumothorax. IMPRESSION: No acute chest disease. ACT 112: Negative or not required by law. Electronically signed by: Rajesh Ferguson M.D. 01/29/2023 7:50 AM
[2023-01-29 07:57] LABS: Basophils # (auto) 0.05 K/uL (0-0.2); Basophils % (auto) 0.4 %; Eosinophils # (auto) 0.03 K/uL (0-0.50); Eosinophils % (auto) 0.3 %; Hematocrit (blood only) 37.4 % (37.0-47.0); Hemoglobin 12.4 g/dl (12.0-16.0); Immature Granulocytes # (auto) 0.03 K/uL (0.01-0.20); Immature Granulocytes % (auto) 0.3 %; Lymphocytes # (auto) 1.57 K/uL (1.2-3.4); Lymphocytes % (auto) 14.1 %; Mean Corpuscular Hemoglobin 27.1 pg (25.0-34.0); Mean Corpuscular Hgb Conc 33.2 g/dL (32.0-36.0); Mean Corpuscular Volume 81.8 fL (80.0-100.0); Mean Platelet Volume 9.8 fL (9.4-12.4); Monocytes # (auto) 0.32 K/uL (0.11-0.59); Monocytes % (auto) 2.9 %; Neutrophils # (auto) 9.13 K/uL (1.40-6.50); Platelet Count 400 K/uL (130-400); RDW Coefficient of Variation 13.7 % (11.5-14.5); RDW Standard Deviation 40.5 fL (36.4-46.3); Red Blood Count 4.57 M/uL (4.20-5.40); White Blood Count 11.13 K/ul (4.8-10.8)
[2023-01-29 08:00] LABS: BUN Creatinine Ratio 15.9 (10-20); Est GFR (African American) 123.8 ml/min; Est GFR (Non-African American) 106.8 ml/min; Potassium 4.1 mmol/L (3.5-5.1)
[2023-01-29 08:13] LABS: Estimated Average Glucose 117 mg/dl; Hemoglobin A1C 5.7 % (4.5-5.6)
--- NOTE | 2023-01-29 14:30 | Neurology Consultation ---
Date of Consultation January 29, 2023 Assessment & Plan (1) Mass of temporoparietal region of brain: Plan NEUROLOGY CONSULTATION Assessment & Plan: Impression: pt with large left temporal mass lesion, appears to be benign meningioma. agree with plan to transfer pt to [facility] medical for neurosurgical eval and further evaluation. pt clinically stable. Recommendations: -given the location of mass lesion, recommend starting AED, Keppra 500mg po bid. this will help with vertigo and prevent potential seizure risk in the future. plans to transfer to [facility] don't see the clear need for steroid, agree with [facility] neurology. educated pt and family about the mri findings and answered all questions. Dr. Elkin Akins MD [facility] Neurology Chief Complaint: brain mass History of Present Illness: pt with mri brain noted for left temporal area large mass, appears to be meningioma. pt with vertigo symptoms with laying down. no headache. no eye problem. no seizures. mri reviewed. Admission/Initial HPI documentation: Medical history significant for migraine, thyroid cancer status post surgery, postsurgical hypothyroidism, hx cervical high-grade squamous intraepithelial cervical lesion (2021), congenital nystagmus as per records. Patient woke up yesterday morning vertigo symptoms, spinning sensation. Mild headache symptoms. Symptoms worse on the supine position. Symptoms somewhat different from migraine or sinus congestion attack. No response to home migraine medications or decongestants. No chest pain, no SOB. Patient brought to the ER for evaluation. Transient chest tightness, palpitations while undergoing CAT scan secondary to claustrophobia. Past Medical History: See chart Meds: See chart I personally reviewed all of the medications Social & Family History: See chart Review of Systems: Per initial HPI on admission. Physical Exam: GEN: NAD HEENT: Normocephalic Neuro: Mental status:A & O x 3.No dysarthria or aphasia.No neglect. Fluent speech. No apraxia Cranial Nerves:II-XII intact with some vertigo symptoms with rt caitie-hallpike. Motor:Normal bulk and tone,5/5 strength x 4 extremities Coordination:Intact Reflexes:down going toes felix Sensation: Intact x 4 extremities to touch Chart reviewed I have spent more than 50% educating patient about potential diagnosis and neurological evaluation and coordinating care with patient's treatment team. Total time spent (including chart review and coordination of care): 80 min (this includes chart review). History of Present Illness Attending Physician: Mikey Aguirre MD Allergies Allergy/AdvReac Type Severity Reaction Status Date / Time sumatriptan [From Imitrex] AdvReac Severe BECAME Verified 01/29/23 01:01 HOMICIDAL Home Medications Medication Instructions Recorded Confirmed Type levothyroxine 137 mcg tablet 137 mcg PO 4XWK 09/28/20 01/29/23 History (Levo-T) levothyroxine 150 mcg tablet 150 mcg PO 3XWK 09/28/20 01/29/23 History (Levo-T) naratriptan 2.5 mg tablet 2.5 mg PO DIRECTED PRN Migraine 01/29/23 01/29/23 History Headache norgestrel 0.3 mg-ethinyl 1 tab PO DAILY 01/29/23 01/29/23 History estradiol 30 mcg tablet (Low-Ogestrel (28)) Patient History Surgical History H/O thyroidectomy Family History Other No significant family history Social History Smoking Status: Never smoker Second Hand Exposure: No; Do You Dip or Chew Tobacco: No; Tobacco Cessation Education Requested by Patient: No Hx Alcohol Use: No Hx Substance Use: No Preferred Language: Kinyarwanda Communication Ability: Effective Supervisor Dock Required: No Beliefs That Will Affect Care: None Current Living Situation: Significant Other Other Information That Helps Us Care for You: No Feels Safe at Home: Yes Safety Concerns: Feels Safe At This Time Assistive Devices: None Results & Data ([facility]) Vital Signs (Past 12 Hours) Vital Signs Temp Pulse Pulse Resp BP BP Pulse Ox 01/29/23 11:22 36.7 C 96 H 17 136/82 96 01/29/23 07:18 36.8 C 115 H 16 149/91 H 98 01/29/23 07:16 36.8 C 122 H 17 149/97 H 96 01/29/23 06:04 36.8 C 115 H 16 149/91 H 98 01/29/23 05:30 111 H 19 153/110 H 94 01/29/23 05:30 153/110 H 01/29/23 03:30 115 H 17 167/104 H 01/29/23 05:22 124 H 152/99 H 01/29/23 05:08 120 H 20 152/99 H 98 01/29/23 04:55 127 H 18 170/105 H 95 01/29/23 03:05 126 H 24 163/109 H 97 01/29/23 03:00 127 H 23 174/106 H 98 01/29/23 02:45 121 H 18 172/112 H 97 O2 Del Method 01/29/23 11:22 Room Air 01/29/23 07:18 Room Air 01/29/23 07:16 Room Air 01/29/23 06:04 Room Air 01/29/23 05:30 01/29/23 05:30 01/29/23 03:30 01/29/23 05:22 01/29/23 05:08 Room Air 01/29/23 04:55 Room Air 01/29/23 03:05 Room Air 01/29/23 03:00 Room Air 01/29/23 02:45 Room Air
[2023-01-29] MEDS ORDERED: ONDANSETRON ORAL SOLN 0.8 MG/1 ML PO PRN (14:40)
[2023-01-29] MEDS ORDERED: OPTIRAY 350 100ml IV ONE (14:53)
[2023-01-29] MEDS ORDERED: ONDANSETRON 4 MG OD TAB PO PRN (15:02)
--- NOTE | 2023-01-29 15:17 | Communication Note ---
Date of Service: January 29, 2023 Patient seen and examined at bedside. She is comfortably sitting up on the bed; not in distress. She reports symptoms of vertigo while lying down. No headache at present time. On examination Alert orient x3 Chestbilateral basal breath sound Abdomensoft, nontender NeuroII to XII intact. Strength intact throughout. Sensation intact. Assessment/plan Vertigo Brain mass ( likely Meningioma) MRI brain shows extra-axial dural based right TM and soft tissue mass in the left middle cranial fossa measuring 25.5 x 24.5 x 22 mm with moderate surrounding vasogenic edema; most likely represents a meningioma. Images were reviewed by [facility]'s neurology and neurosurgery. As per neurosurgery ( Dr. Devang Garcia); most likely meningioma. Follow-up as outpatient in 2 weeks if neurologically intact. Recommend CT chest, abdomen and pelvis to rule out metastatic disease. Decadron 2 mg to be started daily till she sees neurosurgery as outpatient in 2 weeks. Neurology inpatient evaluated the patient; recommend addition of Keppra 500 twice daily to prevent potential seizure risks in the future.
[2023-01-29] MEDS: dexAMETHasone 1 MG TAB PO SCH (15:51)
--- NOTE | 2023-01-29 15:51 | CT Scan Report ---
CHEST CT WITH CONTRAST CT DOSE: 1623.78 mGy.cm HISTORY: Intracranial mass, rule out metastatic disease TECHNIQUE: Multiaxial CT images of the chest were performed following the intravenous administration of contrast. A dose lowering technique was utilized adhering to the principles of ALARA. COMPARISON: None. FINDINGS: The central airways are patent. No pneumothorax. No pleural effusions. There is a punctate calcified granuloma within the right middle lobe. There are mild dependent changes seen at the lung b ases. Otherwise, the lungs are clear. No suspicious lytic or blastic osseous lesions. Please refer to the same day abdomen and pelvis CT for further evaluation of the abdominal structures. There is a 2. 5 cm left adrenal gland nodule which appears to contain macroscopic fat. Therefore, this favors an ad renal myelolipoma. The thyroid gland is not identified and may be surgically absent. Normal esophagus . There is a 3.8 cm right pericardial cyst. No mediastinal or hilar lymphadenopathy. The heart is nor mal in size. The mediastinal vascular structures are within normal limits. IMPRESSION: 1. No significant abnormality within the chest. 2. Specifically, no evidence for metastatic disease. 3. A 2.5 cm left adrenal gland nodule which contains macroscopic fat. Therefore, this favors a benign myelolipoma. This is better appreciated on the same day abdomen and pelvis CT. ACT 112: Negative or not required by law. Electronically signed by: Jordan Walker M.D. 01/29/2023 3:50 PM
--- NOTE | 2023-01-29 16:05 | CT Scan Report ---
CT abd pelvis IV con only CLINICAL HISTORY: Intracranial mass, concern for metastatic disease TECHNIQUE: Helical axial images of the abdomen and pelvis were obtained and displayed. Automated dose lowering techniques and/or adjustment according to patient size were utilized for this exam. This e xam was performed with intravenous contrast. COMPARISON: None available at the time of this dictation. FINDINGS: Lower chest: For findings above the diaphragm, please see CT chest performed same day. Liver: Unremarkable. No focal lesions are seen. Gallbladder and biliary tree: A phrygian cap is incidentally noted. Gallbladder is otherwise unremark able. No intra- or extrahepatic biliary ductal dilation. Pancreas: Unremarkable, no focal lesions. Spleen: Unremarkable. Adrenals: There is soft tissue nodule in the left adrenal gland measuring 23 x 12 mm. Kidneys and ureters: Unremarkable. Bladder: Unremarkable. Reproductive organs: Unremarkable. Bowel: Unremarkable. Lymph nodes Retroperitoneal: Unremarkable. Pelvic: Unremarkable. Mesenteric: Unremarkable. Peritoneum: Normal. Vessels: Unremarkable. Abdominal wall: Unremarkable. Bones: Unremarkable. IMPRESSION: No acute abnormalities. No definite evidence of metastatic disease. Soft tissue nodule is noted in th e left adrenal gland, nonspecific. If there is clinical concern, CT or MRI adrenal protocol can be pe rformed. ACT 112: Negative or not required by law. Electronically signed by: Rajesh Ferguson M.D. 01/29/2023 4:02 PM
[2023-01-29] MEDS: levETIRAcetam 500 MG TAB PO SCH (20:54)
[2023-01-30] MEDS ORDERED: LEVOTHYROXINE SODIUM 150 MCG TABLET PO SCH (06:04)
--- NOTE | 2023-01-30 06:06 | Electrocardiogram Report ---
Test Reason : Blood Pressure : / mmHG Vent. Rate : 100 BPM Atrial Rate : 100 BPM P-R Int : 128 ms QRS Dur : 098 ms QT Int : 354 ms P-R-T Axes : 007 -02 001 degrees QTc Int : 456 ms Poor data quality, interpretation may be adversely affected Normal sinus rhythm Incomplete right bundle branch block Voltage criteria for left ventricular hypertrophy Nonspecific T wave abnormality Abnormal ECG When compared with ECG of 16-SEP-2013 23:59, Incomplete right bundle branch block is now Present Confirmed by Brendan Irving ([id number]) on 01/30/2023 6:06:02 AM Referred By: REFERRED SELF Confirmed By:Brendan Irving
[2023-01-30] MEDS: levETIRAcetam 500 MG TAB PO SCH (07:40)
[2023-01-30] MEDS: dexAMETHasone 1 MG TAB PO SCH (07:40)
--- NOTE | 2023-01-30 10:57 | Discharge Summary ---
Date of Service January 30, 2023 Admission HPI Per Admitting Provider History obtained from patient, family, and records. Medical history significant for migraine, thyroid cancer status post surgery, postsurgical hypothyroidism, hx cervical high-grade squamous intraepithelial cervical lesion (2021), congenital nystagmus as per records. Patient woke up yesterday morning vertigo symptoms, spinning sensation. Mild headache symptoms. Symptoms worse on the supine position. Symptoms somewhat different from migraine or sinus congestion attack. No response to home migraine medications or decongestants. No chest pain, no SOB. Patient brought to the ER for evaluation. Transient chest tightness, palpitations while undergoing CAT scan secondary to claustrophobia. CT head showed left temporal lobe edema vasogenic edema. Patient accepted for transfer at [facility] by neurohospitalist service pending bed availability. Medical History as above 2021 Cologuard was negative 2021 mammogram was negative Surgical History : Breast biopsy, cervical colposcopy, thyroidectomy Family History : Stroke, DM, heart disease, dementia Personal/Social history : Non-smoker, occasional Et[employer] intake, human resources ward secretary for [employer] Admission Exam Per Admitting Provider GENERAL: Comfortable, obese, slightly anxious, no respiratory distress SKIN: Normal color, warm HEENT: [place] palpebral conjunctivae, no ptosis, moist buccal mucosa NECK : Supple, short neck, no tenderness CHEST : CTA, no tenderness HEART : Tachycardic, no obvious murmurs ABDOMEN: Some distention, nontender EXTREMITIES : No LE swelling/tenderness, no other conspicuous deformities noted NEUROLOGIC : Coherent, no facial asymmetry, no other gross focality Principal Diagnosis Vertigo Brain Mass Discharge Exam Constitutional: WD/WN, vitals as above, NAD, sitting up in bed, pleasant, conversing easily Respiratory: normal respiratory effort, lungs clear to auscultation, no wheeze, rales, rhonchi. Normal insp/exp effort, no accessory muscle use Cardiovascular: RRR, no murmur, no edema Vessels: no JVD or carotid bruit Chest: normal inspection of chest Abdomen: normal bowel sounds, soft, nontender, no hepatosplenomegaly Musculoskeletal: no cyanosis or clubbing, extremities motor strength 5/5 Skin: no rashes, warm and dry normal turgor Neurologic: PERRL, EOMI, accommodation nl, no face palsy, no dysarthria CN's II- XI intact bilaterally and moves all extremities Psychiatric: A+Ox3, euthymic affect Lymphatic: no cervical or axillary lymphadenopathy : deferred Discharge Data Allergies Allergy/AdvReac Type Severity Reaction Status Date / Time sumatriptan [From Imitrex] AdvReac Severe BECAME Verified 01/29/23 01:01 HOMICIDAL Consultations 01/29/23 02:49 ED Decision to Admit Stat 01/29/23 13:03 Consult Neurology Routine Ordered Studies 01/28/23 23:10 CT head/brain wo con Stat 01/28/23 23:12 CT angio head w con Stat CT angio neck with con Stat 01/29/23 03:30 MRI Brain [MR brain wo/w con] Stat 01/29/23 13:01 CT abd pelvis IV con only Routine CT chest diagnostic w con Routine Hospital Course (1) Mass of temporoparietal region of brain: (2) Vertigo: Plan Patient is a 47-year-old female with past medical history of migraine, postsurgical hypothyroidism, conjunctival nystagmus presents to the ED with vertigo symptoms when she is in supine position. CT head done in the ED showed moderate left temporal lobe vasogenic edema; no hemorrhage, hydrocephalus or herniation was seen. ED physician discussed with neuro hospitalist at [facility] regarding the finding in the CT head. Patient was recommended to undergo brain MRI with and without contrast. She was also accepted to be transferred to [facility] for further care. Patient was admitted to the hospital pending transfer to [facility]. Brain MRI was done which showed extra-axial dural based brightly enhancing soft tissue mass in left middle cranial fossa measuring 25.5 x 24.5 x 22 mm with moderate surrounding vasogenic edema. MRI brain results were reviewed by [facility]'s neurology and neurosurgery. As per neurosurgery ( Dr. Devang Garcia); it is most likely meningioma. He recommended follow-up as outpatient in 2 weeks if neurologically intact. CT chest, CT abdomen/pelvis were done; she was found to have soft tissue nodule in left adrenal gland which was nonspecific. No definitive evidence of metastatic disease was found. Inpatient neurologist was consulted for comanagement as well. He recommended Keppra 500 mg twice daily for seizure prophylaxis. Neurosurgery in [facility] recommended 2 mg dexamethasone once daily till she sees neurosurgery as outpatient. And outpatient follow-up with neurosurgery at [facility] was made on February 13. Patient to follow-up with her primary care doctor in the interim. Total Time Total Time Spent Total Time Spent (In Minutes): 45 Total Time Includes: Examination of the Patient, Discharge Planning, Medication Reconciliation, Communication With Other Providers and Other Discharge Plan Discharge Items Patient Disposition: Home - Self-Care Reason For Visit: HTN CRISIS Discharge Diagnosis: Vertigo Brain mass ( Likely Meningioma) Activity: Resume your previous activity Non-emergency contact: Primary Care Provider Call non-emergency contact if: you have any medication questions and your symptoms worsen Follow-up/Referrals: Marco A Aguilera MD [Primary Care Provider] - (Date & Time 02/04/2023 9:00 AM Provider Marco A Aguilera MD Department [facility] ) Sergio Bills MD [Outside Practitioners] - (Date & Time 02/13/2023 9:30 AM Provider Sergio Bills MD Department Neurosurgery, [place] This appointment location is on the 2nd floor of the [facility] in [place]. ) Diet: Regular Addtl Attending Provider Instructions: You were admitted to the hospital and found to have brain mass. The mass is in temporoparietal region of the brain. The mass is most likely meningioma. The MRI Brain images were reviewed by neurosurgery in [facility]. They recommended you to be placed on dexamethasone 2 mg once daily to decrease surrounding inflammation. An appointment is set up for you on February 13, 2023 to see neurosurgery at [facility] [place]. You were also evaluated by neurology while admitted to the hospital. They recommended you to be placed on antiseizure medication (Keppra 500 mg twice daily) to help with further diagnosis and prevent potential seizure risks. CT chest, abdomen and pelvis were done during the hospitalization. Soft tissue nodule was seen in the left adrenal gland which is nonspecific. An appointment will be set up for you with your primary care doctor. Pending Studies at Discharge: No Stand-Alone Forms: My [employer], Work/School Release, Smoking Cessation Medications and DC Order Prescriptions: New levetiracetam [Keppra] 500 mg Tablet 500 mg PO BID Qty: 60 0RF ondansetron 4 mg Tablet,Disintegrating 4 mg PO Q8H PRN (Reason: nausea and vomiting) Qty: 10 0RF dexamethasone 2 mg tablet 2 mg PO DAILY 15 Days Qty: 15 0RF Continued levothyroxine [Levo-T] 137 mcg tablet 137 mcg PO 4XWK Rx Instructions: TAKES SUN, TUES, THURS & SAT. levothyroxine [Levo-T] 150 mcg tablet 150 mcg PO 3XWK Rx Instructions: TAKES MON, WED, & FRI. Low-Ogestrel (28) 0.3-30 mg-mcg tablet 1 tab PO DAILY naratriptan 2.5 mg tablet 2.5 mg PO DIRECTED PRN (Reason: Migraine Headache) Discharge Orders: Discharge Order (Routine); Ordered 01/30/23 Ordered By: Mikey Aguirre Admission Data Admit Date/Time: 01/29/23 03:32 Attending Provider: Mikey Aguirre Admit Provider: Ernesto Tyler Primary Care Provider: Marco A Aguilera Other Providers: Ernesto Tyler ; Elkin Akins
== END 2023-01-30 11:29 | disposition home or self-care (01) | DRG 54 ==
LOC: ED 22:49 → 2S 01-29 03:32